=== PATIENT | female | born 1985 | race Two or more races ===

== ENCOUNTER 2017-11-15 01:20 | Emergency (ER) | payer SELFPAY ==
[~2017-11-15] VITALS: Ht 175.3 cm; Wt 93.6 kg
[~2017-11-15 01:20] MED LIST: CIPRO500 MG PO; IBUPROFEN800 MG PO; NOHOMEMEDS; PRENATAL TABLE1 EACH PO; ZOFRAN ODT4 MG PO
[2017-11-15 01:50] LABS: HEMATOCRIT 39.3 % (36.0-46.0); HEMOGLOBIN 13.9 G/DL (11.9-15.5); MCH 30.3 PG (29.0-34.0); MCHC 35.4 G/DL (30.0-36.0); MCV 85.6 FL (83-99); PLATELET COUNT 307 K/uL (156-360); RBC DIS.WIDTH-CV 11.6 % (11.8-14.6); RBC DIS.WIDTH-SD 35.9 % (39-53); RED BLOOD COUNT 4.59 M/uL (3.80-5.20); WHITE BLOOD COUNT 8.9 K/uL (4.1-10.2)
[2017-11-15] MEDS ORDERED: NORCO 5/3251 TABLET PO (04:18)
[2017-11-15 04:57] LABS: APPEARANCE CLEAR ((CLEAR)); BILIRUBIN NEGATIVE; BLOOD NEGATIVE; COLOR STRAW ((YELLOW)); GLUCOSE (STRIP) NEGATIVE; KETONES 5; LEUKOCYTES NEGATIVE; NITRITE NEGATIVE; PROTEIN (STRIP) NEGATIVE; SPECIFIC GRAVITY 1.012 (1.000-1.030); UCUL ADDED? NO; UROBILINOGEN 0.2 MG/DL (0.2-1.0)
[2017-11-15 05:32] VITALS: BP 111/70
== END 2017-11-15 05:37 | disposition home or self-care (01) ==
LOC: EME 01:20
PROVIDERS: Physician Assistant
DX: O34.81 Maternal care for other abnormalities of pelvic organs, first trimester (principal); N83.201 Unspecified ovarian cyst, right side; O99.511 Diseases of the respiratory system complicating pregnancy, first trimester; J45.909 Unspecified asthma, uncomplicated; O99.331 Smoking (tobacco) complicating pregnancy, first trimester; F17.200 Nicotine dependence, unspecified, uncomplicated; Z3A.01 Less than 8 weeks gestation of pregnancy; Z88.2 Allergy status to sulfonamides
CPT/HCPCS: 76801; 81003; 84702; 85027; 86900; 86901; 99281; 99284

== ENCOUNTER 2017-11-26 18:53 | Emergency (ER) | payer SELFPAY ==
[~2017-11-26 18:53] MED LIST changes: +NORCO 5/3251 TABLET PO
== END 2017-11-26 19:49 | disposition left against medical advice (07) ==
LOC: EME 18:53
DX: T78.40XA Allergy, unspecified, initial encounter (principal); Z53.21 Procedure and treatment not carried out due to patient leaving prior to being seen by health care provider

== ENCOUNTER → 2018-04-23 | Outpatient (CLI) | payer OTHER ==
[~2018-04-23] VITALS: Ht 175.3 cm; Wt 99.0 kg
[~2018-04-23] MED LIST changes: +PRENATAL GUMMI1 EACH PO
[2018-04-23 10:14] VITALS: BP 132/71
== END | disposition home or self-care (01) ==
LOC: IVINF 10:00
DX: Z34.83 Encounter for supervision of other normal pregnancy, third trimester (principal); Z31.82 Encounter for Rh incompatibility status; Z3A.28 28 weeks gestation of pregnancy; Z67.41 Type O blood, Rh negative
CPT/HCPCS: 96372; J2790